=== PATIENT | female | born 1960 | race Caucasian/White ===

== ENCOUNTER → 2021-11-08 02:07 | Outpatient (CLI) | payer OTHER, SELFPAY ==
--- NOTE | 2021-11-08 07:30 | DI.MAMMO_ITS ---
Exam(s) MAMMO SCREENING EXAM: MAMMO SCREENING CLINICAL HISTORY: screening,z12.39 TECHNIQUE: Mammograms were interpreted according to the usual protocol including computer analysis w [employer] CAD system, tomosynthesis and C-view imaging. COMPARISON: FINDINGS: The breasts are of moderate density with fairly symmetrical distribution of fibroglandular tissue. N o dominant mass or clumped microcalcification is identified in either breast. The current examinatio n is compared with previous examinations including June 2017 and there has been no gross interval ch elma in appearance in comparison with the prior studies. IMPRESSION: No specific evidence of malignancy at this time. Routine screening examinations are suggested at ye kaveh intervals in this age group according to the ACS ACR guidelines. BI-RADS Category 1 - Negative Breast Density - Category B - Scattered areas of fibroglandular density
== END ==
PROVIDERS: PCP Nurse Practitioner Family; Visit Provider Nurse Practitioner Family
DX: Z12.31 Encounter for screening mammogram for malignant neoplasm of breast (principal)
CPT/HCPCS: 77063; 77067

== ENCOUNTER 2021-11-16 12:46 | Outpatient (REF) | payer OTHER, SELFPAY ==
--- NOTE | 2021-11-16 09:50 | PAPFT_PTH ---
PATIENT: Dottie Guzman LOC: [facility] U#:[id number] AGE/SX: 60/F ROOM: RE11/16/[address]: JOSUÉ Carmona : 1960 BED: DIS: 11/16/2021 SPEC #: [id number] RECD: 11/16/21 12:57 STATUS: NICKOLAS REBritta #: [id number] CHRISTOPH: 11/16/21 09:[address]: Elissa Tolbert DEPT: [facility] Cytology RECD BY: Nora Iniguez Tissues: 1 - CX/ENDOCX FOR PAP SMEARS Procedures: PAP THIN PREP/[facility] Screening HPV DNA PROBE Comments: [id number]
[2021-11-16 14:03] LABS: ALT 20 U/L (14-59); AST 22 U/L (15-37); Albumin 3.8 g/dL (3.4-5.0); Alkaline Phosphatase 69 U/L (46-116); BUN 15 mg/dL (7-18); Bilirubin, Total 0.3 mg/dL (0.2-1.0); CREATININE 0.7 mg/dL (0.55-1.02); Calcium 8.9 mg/dL (8.5-10.1); Calculated LDL 113 mg/dL (<100); Chloride 105 mmol/L (98-107); Cholesterol 221 mg/dL (<200); Glucose 96 mg/dL (74-106); HDL Cholesterol 99 mg/dL (40-60); Potassium 3.7 mmol/L (3.5-5.1); Sodium 143 mmol/L (136-145); TSH (W/Ref FT4) 1.07 uIU/mL (0.36-3.74); Triglyceride 46 mg/dL (<150)
[2021-11-16 14:42] LABS: Hemoglobin A1C 5.7 % (<5.7)
== END 2021-11-16 12:47 | disposition home or self-care (01) ==
LOC: LBN 12:46
PROVIDERS: PCP Nurse Practitioner Family; Visit Provider Nurse Practitioner Family
DX: E78.5 Hyperlipidemia, unspecified (principal); N95.1 Menopausal and female climacteric states; F32.9 Major depressive disorder, single episode, unspecified; Z12.4 Encounter for screening for malignant neoplasm of cervix; Z13.1 Encounter for screening for diabetes mellitus; Z11.51 Encounter for screening for human papillomavirus (HPV)
CPT/HCPCS: 80053; 80061; 88142; 83036; 84443; 87624